=== PATIENT | female | born 1950 | race Caucasian/White ===

== ENCOUNTER 2018-01-18 17:19 | Observation (INO) | payer BC ==
[2018-01-18] MEDS ORDERED: Levofloxacin 500MG/100ML D5W 500 MG/100 ML BAG IV STA (18:11)
[2018-01-18] MEDS ORDERED: Sodium Chloride 0.9% 1000 ML 1,000 ML IV STA (18:11)
[2018-01-18] MEDS ORDERED: PROVENTIL 2.5 MG/3 ML NEB IH ONE (18:11)
[2018-01-18] MEDS ORDERED: solu-MEDROL 125 MG IV ONE (18:11)
--- NOTE | 2018-01-18 18:18 | ERPHSYRPT ---
- History of Present Illness Time Seen by Provider: 01/18/18 17:45 Source: patient Exam Limitations: clinical condition Patient Subjective Stated Complaint: Cough and SOB x2 weeks, chest tightness Triage Nursing Assessment: Pt presents to the ED with complaints of SOB and cough x2 weeks, worse with exertion. States saw PCP for complaint, no improvement with antibiotics. Pt is A&O x4, no distress noted. Physician History: PATIENT COMPLAINS OF COUGH, DIFFICULTY BREATHING X 2 WEEKS, TREATED WITH ANTIBIOTIC KEFLEX 500MG 4 TIMES DAILY X 5 DAYS. HAS NO IMPROVEMENT. CONTINUES TO HAVE WHEEZES. DENIES FEVER AND CHILLS. Timing/Duration: week(s) Cough Quality/Degree: dry cough Possible Cause: no prior episodes Modifying Factors: Improves With: activity Associated Symptoms: shortness of breath, wheezing Allergies/Adverse Reactions: No Known Drug Allergies Allergy (Verified 06/20/12 22:22) Home Medications: Benzonatate 100 mg [Tessalon Perles 100 MG] 100 mg PO TIDPRN PRN 01/18/18 [History] cephALEXin [Cephalexin] 500 mg PO QID 01/18/18 [History] Hx Tetanus, Diphtheria Vaccination/Date Given: No Hx Influenza Vaccination/Date Given: No Hx Pneumococcal Vaccination/Date Given: No Immunizations Up to Date: No - Review of Systems Constitutional: No Fever, No Chills Eyes: No Symptoms Ears, Nose, & Throat: No Symptoms Respiratory: Cough, Dyspnea, Dyspnea on Exertion (CASTANEDA) Cardiac: No Symptoms, No Chest Pain, No Edema, No Syncope Abdominal/Gastrointestinal: No Symptoms, No Abdominal Pain, No Nausea, No Vomiting, No Diarrhea Genitourinary Symptoms: No Symptoms, Incontinence, No Dysuria Musculoskeletal: No Symptoms, No Back Pain, No Neck Pain Skin: No Rash Neurological: No Dizziness, No Focal Weakness, No Sensory Changes Psychological: No Symptoms Endocrine: No Symptoms All Other Systems: Reviewed and Negative - Past Medical History Pertinent Past Medical History: Yes Neurological History: No Pertinent History ENT History: No Pertinent History Cardiac History: Other Respiratory History: COPD Endocrine Medical History: No Pertinent History Musculoskeletal History: No Pertinent History GI Medical History: GERD History: No Pertinent History Psycho-Social History: No Pertinent History Female Reproductive Disorders: Endometriosis Other Medical History: MITRAL VALVE PROLAPSE - Past Surgical History Past Surgical History: Yes Neuro Surgical History: No Pertinent History Cardiac: No Pertinent History Respiratory: No Pertinent History Gastrointestinal: Cholecystectomy Genitourinary: No Pertinent History Musculoskeletal: Joint Replacement Other Surgical History: BACK. KNEE. SALPINGO-OOPHERCTOMY - Social History Smoking Status: Never smoker Exposure to second hand smoke: No Drug Use: none Patient Lives Alone: No - Female History Hx Now: No - Nursing Vital Signs Nursing Vital Signs: Initial Vital Signs Temperature 9.0 F 01/18/18 17:22 Pulse Rate 81 01/18/18 17:22 Respiratory Rate 20 01/18/18 17:22 Blood Pressure 140/66 01/18/18 17:22 O2 Sat by Pulse Oximetry 99 01/18/18 17:22 Pain Scale Pain Intensity 0 - Physical Exam General Appearance: no apparent distress, alert Eye Exam: PERRL/EOMI, eyes nml inspection Ears, Nose, Throat Exam: normal ENT inspection, TMs normal, pharynx normal, moist mucous membranes Neck Exam: normal inspection, non-tender, supple, full range of motion Respiratory Exam: diminished breath sounds (MODERATE WHEEZES, NO RHONCHI), No respiratory distress Cardiovascular Exam: regular rate/rhythm, normal heart sounds Gastrointestinal/Abdomen Exam: soft, No tenderness Back Exam: normal inspection, No CVA tenderness, No vertebral tenderness Extremity Exam: normal inspection, normal range of motion Neurologic Exam: alert, oriented x 3, cooperative, normal mood/affect, sensation nml, No motor deficits Skin Exam: normal color, warm, dry, No rash Lymphatic Exam: No adenopathy SpO2: 99 Oxygen Delivery: Room Air - Radiology Exams Chest X-ray Interpretation: Interpreted by me (PERIHILAR INFILTRATES) Ordered Tests: Active Orders 24 hr Category Date Time Status Code Status Order ROUTINE Care 01/18/18 20:16 Ordered IV Care Q6H Care 01/18/18 20:16 Ordered IV Insertion STAT Care 01/18/18 19:[address] in Observation ROUTINE Care 01/18/18 20:16 Ordered Boy Hose, Apply ROUTINE Care 01/18/18 20:16 Ordered Vital Signs Q4H Care 01/18/18 20:16 Ordered Weight,Daily 0600 Care 01/18/18 20:16 Ordered Regular Diet Diet 01/18/18 Breakfast Ordered CHEST 2 VIEWS (PA AND LAT) Stat Exams 01/18/18 18:12 Taken CBC W DIFF Stat Lab 01/18/18 18:30 Completed Manual Differential NC Stat Lab 01/18/18 18:30 Completed Oxygen NASAL CANNULA 2 lpm RT 01/18/18 20:16 Ordered Peak Expiratory Flow Rate ONCE RT 01/18/18 18:14 Completed Pulse Oximetry CONTINUOUS RT 01/18/18 20:18 Ordered Respiratory Nebulizer STAT RT 01/18/18 18:14 Completed Respiratory Therapy Consult ROUTINE RT 01/18/18 20:16 Ordered Transfer Order Routine Transfer 01/18/18 Ordered Medication Summary Discontinued Medications Generic Name Dose Route Start Last Admin Trade Name Vipinq PRN Reason Stop Dose Admin Albuterol Sulfate 10 mg 01/18/18 18:11 01/18/18 18:38 Proventil 2.5 Mg/3 Ml Neb IH 01/18/18 18:12 10 mg STAT ONE Administration Albuterol Sulfate Confirm 01/18/18 18:38 Proventil Solution 2.5 Mg/0.5 Ml Administered 01/18/18 18:39 Dose 10 mg IH .STK-MED ONE Levofloxacin/Dextrose 500 mg in 100 mls @ 100 mls/hr 01/18/18 18:11 01/18/18 18:42 Levofloxacin 500mg/100ml D5w IV 01/18/18 19:10 100 ml/hr STAT STA 100 mls/hr Administration Sodium Chloride 1,000 mls @ 500 mls/hr 01/18/18 18:11 01/18/18 18:42 Sodium Chloride 0.9% 1000 Ml IV 01/18/18 20:10 500 mls/hr .Q2H STA Administration Sodium Chloride Confirm 01/18/18 18:30 Sodium Chloride 0.9% 1000 Ml Administered 01/18/18 18:31 Dose 1,000 mls @ ud .ROUTE .STK-MED ONE Levofloxacin/Dextrose Confirm 01/18/18 18:33 Levofloxacin 500mg/100ml D5w Administered 01/18/18 18:34 Dose 500 mg in 100 mls @ ud IV .STK-MED ONE Methylprednisolone Sodium Succinate 125 mg 01/18/18 18:11 01/18/18 18:42 Solu-Medrol 125 Mg IV 01/18/18 18:12 125 mg STAT ONE Administration Methylprednisolone Sodium Succinate Confirm 01/18/18 18:30 Solu-Medrol 125 Mg Administered 01/18/18 18:31 Dose 125 mg .ROUTE .STK-MED ONE Sodium Chloride Confirm 01/18/18 18:37 Sodium Chloride 3 Ml Ud Nebules Administered 01/18/18 18:38 Dose 6 ml IH .STK-MED ONE Lab/Rad Data: Laboratory Result Diagrams 01/18/18 18:30 Laboratory Results 01/18/18 Range/Units 18:30 WBC 8.5 (4.0-10.5) K/mm3 RBC 3.95 L (4.1-5.4) M/mm3 Hgb 13.3 (12.0-16.0) gm/dl Hct 36.2 (35-47) % MCV 91.6 (78-100) fl MCH 33.6 H (26-32) pg MCHC 36.7 H (32-36) g/dl RDW 13.7 (11.5-14.0) % Plt Count 289 (150-450) K/mm3 MPV 10.4 H (6-9.5) fl Absolute Granulocytes 4.73 (1.4-6.9) - Progress Progress: improved, re-examined Progress Note: 01/18/18 19:11 ADMINISTERED CONTINUOUS NEB ALBUTEROL 10MG OVER 1 HOUR, IV NORMAL SALINE 500ML/ HR, LEVAQUIN 500MG IVPB, SOLUMEDROL 125MG IV Blood Culture(s) Obtained: No Antibiotics given: No Discussed with : He (DISCUSSED WITH DR ROMEO AT 1999 FOR OBSERVATION) - Departure Time of Disposition: 20:20 Departure Disposition: Observation Clinical Impression: ACUTE BRONCHITIS WITH BRONCHIOSPASM Condition: Stable Critical Care Time: No Referrals: MALINDA ROMEO MD [Primary Care Provider] -
[2018-01-18] MEDS ORDERED: solu-MEDROL 125 MG ONE (18:30)
[2018-01-18] MEDS ORDERED: Sodium Chloride 0.9% 1000 ML 1,000 ML ONE (18:30)
[2018-01-18] MEDS ORDERED: Levofloxacin 500MG/100ML D5W 500 MG/100 ML BAG IV ONE (18:33)
[2018-01-18] MEDS ORDERED: Sodium Chloride 3 ML UD NEBULES IH ONE (18:37)
[2018-01-18] MEDS ORDERED: PROVENTIL Solution 2.5 MG/0.5 ML IH ONE (18:38)
[2018-01-18 18:40] LABS: Granulocyte Absolute (ANC) 4.73 (1.4-6.9); Hematocrit 36.2 % (35-47); Hemoglobin 13.3 gm/dl (12.0-16.0); Mean Cell Volume 91.6 fl (78-100); Mean Corpuscular Hgb Concent. 36.7 g/dl (32-36); Mean Platelet Volume 10.4 fl (6-9.5); Platelet Count 289 K/mm3 (150-450); Red Blood Count 3.95 M/mm3 (4.1-5.4); Red Cell Distribution Width 13.7 % (11.5-14.0); White Blood Count 8.5 K/mm3 (4.0-10.5)
[2018-01-18 18:47] LABS: Mean Corpuscular Hemoglobin 33.6 pg (26-32)
[2018-01-18] MEDS ORDERED: Xopenex 1.25 MG/0.5 ML UD NEBULE IH PRN (20:19)
[2018-01-18] MEDS ORDERED: Tessalon Perles 100 MG PO PRN (20:20)
[2018-01-18] MEDS ORDERED: Sodium Chloride 0.9% 1000 ML 1,000 ML IV SCH (20:30)
[2018-01-18] MEDS: TYLENOL 325 MG PO PRN (21:04)
[2018-01-18] MEDS ORDERED: Protonix 40MG Tablet PO SCH ×2 (22:00)
[2018-01-18 22:56] LABS: Basophil 1 % (0.0-1.0); Lymphocytes 32 % (24-44); Monocyte 9 % (0.0-12.0); Neutrophils 58 % (36.0-66.0); Platelet Estimate NORMAL (NORMAL); Total Cells Counted 100
[2018-01-18] MEDS: DUONEB 0.5-3 MG/3 ml Neb IH SCH (23:07)
[2018-01-18] MEDS: solu-MEDROL 125 MG IV SCH (23:37)
[2018-01-19] MEDS: DUONEB 0.5-3 MG/3 ml Neb IH SCH ×2 (03:11→06:53)
[2018-01-19] MEDS: TYLENOL 325 MG PO PRN ×2 (03:32→11:38)
[2018-01-19] MEDS: solu-MEDROL 125 MG IV SCH ×2 (05:42→11:38)
--- NOTE | 2018-01-19 08:51 | XRAY ---
Indication: Cough and short of breath 2 weeks. Comparison: February 11, 2012. PA/lateral chest again demonstrates normal heart, lungs, and bony thorax with a few incidental calcified granulomas.
[2018-01-19 11:59] VITALS: BP 124/61; PULSE 95; O2SAT 97
--- NOTE | 2018-01-19 12:05 | PCM.SSS ---
History of Present Illness - Chief Complaint Chief Complaint: shortness of breath for 2-3 days History of Present Illness: is a 67 year old female.Pt presents to the ED with complaints of SOB and cough x2 weeks, worse with exertion. States saw PCP for complaint, no improvement with antibiotics - Review of Systems Constitutional: No Fever, No Chills Eyes: No Symptoms Ears, Nose, & Throat: No Symptoms Respiratory: Cough, Orthopnea, Short Of Breath Cardiac: No Chest Pain, No Edema, No Syncope Abdominal/Gastrointestinal: No Abdominal Pain, No Nausea, No Vomiting, No Diarrhea Genitourinary Symptoms: No Dysuria Musculoskeletal: No Back Pain, No Neck Pain Skin: No Rash Neurological: No Dizziness, No Focal Weakness, No Sensory Changes Psychological: No Symptoms Endocrine: No Symptoms Hematologic/Lymphatic: No Symptoms Immunological/Allergic: No Symptoms Medications & Allergies Home Medications: Home Medication List Benzonatate 100 mg [Tessalon Perles 100 MG] 100 mg PO TIDPRN PRN 01/18/18 [History Confirmed 01/18/18] cephALEXin [Cephalexin] 500 mg PO QID 01/18/18 [History Confirmed 01/18/18] Methylprednisolone Packet [Medrol Dosepack] 4 mg PO UD #30 packet [Rx] Allergies/Adverse Reactions: Allergies Allergy/AdvReac Type Severity Reaction Status Date / Time No Known Drug Allergies Allergy Verified 06/20/12 22:22 - Past Medical History Past Medical History: Yes Neurological History: No Pertinent History ENT History: No Pertinent History Cardiac History: Other Respiratory History: COPD Endocrine Medical History: No Pertinent History Musculoskelatal History: No Pertinent History GI Medical History: GERD History: No Pertinent History Pyscho-Social History: No Pertinent History Reproductive Disorders: Endometriosis Comment: MITRAL VALVE PROLAPSE - Female History Are you now?: No - Past Surgical History Past Surgical History: Yes Neuro Surgical History: No Pertinent History Cardiac History: No Pertinent History Respiratory Surgery: No Pertinent History GI Surgical History: Cholecystectomy Genitourinary Surgical Hx: No Pertinent History Musculskeletal Surgical Hx: Joint Replacement Female Surgical History: No Pertinent History Other Surgical History: BACK. KNEE. SALPINGO-OOPHERCTOMY - Social History Smoking Status: Never smoker Exposure to second hand smoke: No Alcohol: None Drug Use: none - Physical Exam Vital Signs: Vital Signs - 24 hr Temp Pulse Resp BP Pulse Ox 01/19/18 11:58 98 F 95 H 18 124/61 97 01/19/18 10:32 102 H 18 95 01/19/18 08:00 18 01/19/18 07:41 98.3 F 92 H 18 130/57 97 01/19/18 06:53 98 H 18 94 L 01/19/18 04:00 97.7 F 98 H 20 123/58 97 01/19/18 03:00 98 H 18 97 01/19/18 00:00 18 01/18/18 23:00 96 H 18 96 01/18/18 21:59 98.6 F 86 14 128/60 100 01/18/18 20:21 99 01/18/18 20:05 97 H 20 138/74 99 01/18/18 18:45 84 20 97 01/18/18 17:22 9.0 F 81 20 140/66 99 General Appearance: no apparent distress, alert Neurologic Exam: alert, oriented x 3, cooperative, normal mood/affect, nml cerebellar function, nml station & gait, sensation nml, No motor deficits Eye Exam: PERRL/EOMI, eyes nml inspection Ears, Nose, Throat Exam: normal ENT inspection, TMs normal, pharynx normal, moist mucous membranes Neck Exam: normal inspection, non-tender, supple, full range of motion Respiratory Exam: normal breath sounds, diminished breath sounds, crackles/rales , rhonchi, wheezing, No respiratory distress Cardiovascular Exam: regular rate/rhythm, normal heart sounds, normal peripheral pulses Gastrointestinal/Abdomen Exam: soft, normal bowel sounds, No tenderness, No mass Back Exam: normal inspection, normal range of motion, No CVA tenderness, No vertebral tenderness Extremity Exam: normal inspection, normal range of motion, pelvis stable Skin Exam: normal color, warm, dry, No rash Lymphatic Exam: No adenopathy Results - Other Procedures and Tests Respiratory Therapy 01/18/18 23:00 Respiratory Nebulizer Q4H Assessment/Plan (1) Bronchitis, acute, with bronchospasm Current Visit: Yes Status: Acute Onset Date: ~01/19/18 Code(s): J20.9 - ACUTE BRONCHITIS, UNSPECIFIED Hospital Summary - Hospital Course Hospital Course: Chief Complaint Diagnosis acute brochitis with bronchiospasm Allergies Allergy/AdvReac Type Severity Reaction Status Date / Time No Known Drug Allergies Allergy Verified 06/20/12 22:22 Vital Signs (Last 24 hours) Temp Pulse Resp BP Pulse Ox 01/19/18 11:58 98 F 95 H 18 124/61 97 01/19/18 10:32 102 H 18 95 01/19/18 08:00 18 01/19/18 07:41 98.3 F 92 H 18 130/57 97 01/19/18 06:53 98 H 18 94 L 01/19/18 04:00 97.7 F 98 H 20 123/58 97 01/19/18 03:00 98 H 18 97 01/19/18 00:00 18 01/18/18 23:00 96 H 18 96 01/18/18 21:59 98.6 F 86 14 128/60 100 01/18/18 20:21 99 01/18/18 20:05 97 H 20 138/74 99 01/18/18 18:45 84 20 97 01/18/18 17:22 9.0 F 81 20 140/66 99 Home Medications Medication Instructions Recorded Confirmed Last Taken Type Benzonatate 100 mg [Tessalon 100 mg PO TIDPRN PRN 01/18/18 01/18/18 Unknown History Perles 100 MG] cephALEXin [Cephalexin] 500 mg PO QID 01/18/18 01/18/18 Unknown History Current Medications Generic Name Dose Route Start Last Admin Trade Name Freq PRN Reason Stop Dose Admin Acetaminophen 650 mg 01/18/18 20:18 01/19/18 11:38 Tylenol 325 Mg PO 02/17/18 20:17 650 mg Q4H PRN PRN Administration PAIN AND/OR FEVER Albuterol/Ipratropium 3 ml 01/18/18 23:00 01/19/18 06:53 Duoneb 0.5-3 Mg/3 Ml Neb IH 02/17/18 22:59 3 ml Q4HRT JOHANNE Administration Benzonatate 100 mg 01/18/18 20:20 01/19/18 03:32 Tessalon Perles 100 Mg PO 02/17/18 20:19 100 mg TID PRN PRN Administration COUGH Sodium Chloride 1,000 mls @ 50 mls/hr 01/18/18 20:30 01/18/18 22:25 Sodium Chloride 0.9% 1000 Ml IV 02/17/18 20:29 50 mls/hr .Q20H JOHANNE Administration Levalbuterol HCl 1.25 mg 01/18/18 20:19 Xopenex 1.25 Mg/0.5 Ml Ud Nebule IH 02/17/18 20:18 Q2HPRN PRN DIFFICULTY BREATHING Methylprednisolone Sodium Succinate 80 mg 01/19/18 00:00 01/19/18 11:38 Solu-Medrol 125 Mg IV 02/18/18 00:00 80 mg Q6HT JOHANNE Administration Pantoprazole Sodium 40 mg 01/18/18 22:00 01/18/18 21:40 Protonix 40mg Tablet PO 02/17/18 21:59 40 mg QHS JOHANNE Administration Discontinued Medications Generic Name Dose Route Start Last Admin Trade Name Freq PRN Reason Stop Dose Admin Albuterol Sulfate 10 mg 01/18/18 18:11 01/18/18 18:38 Proventil 2.5 Mg/3 Ml Neb IH 01/18/18 18:12 10 mg STAT ONE Administration Albuterol Sulfate Confirm 01/18/18 18:38 Proventil Solution 2.5 Mg/0.5 Ml Administered 01/18/18 18:39 Dose 10 mg IH .STK-MED ONE Levofloxacin/Dextrose 500 mg in 100 mls @ 100 mls/hr 01/18/18 18:11 01/18/18 18:42 Levofloxacin 500mg/100ml D5w IV 01/18/18 19:10 100 ml/hr STAT STA 100 mls/hr Administration Sodium Chloride 1,000 mls @ 500 mls/hr 01/18/18 18:11 01/18/18 18:42 Sodium Chloride 0.9% 1000 Ml IV 01/18/18 20:10 500 mls/hr .Q2H STA Administration Sodium Chloride Confirm 01/18/18 18:30 Sodium Chloride 0.9% 1000 Ml Administered 01/18/18 18:31 Dose 1,000 mls @ ud .ROUTE .STK-MED ONE Levofloxacin/Dextrose Confirm 01/18/18 18:33 Levofloxacin 500mg/100ml D5w Administered 01/18/18 18:34 Dose 500 mg in 100 mls @ ud IV .STK-MED ONE Methylprednisolone Sodium Succinate 125 mg 01/18/18 18:11 01/18/18 18:42 Solu-Medrol 125 Mg IV 01/18/18 18:12 125 mg STAT ONE Administration Methylprednisolone Sodium Succinate Confirm 01/18/18 18:30 Solu-Medrol 125 Mg Administered 01/18/18 18:31 Dose 125 mg .ROUTE .STK-MED ONE Pantoprazole Sodium 40 mg 01/18/18 22:00 Protonix 40mg Tablet PO 02/17/18 21:59 DAILY JOHANNE Sodium Chloride Confirm 01/18/18 18:37 Sodium Chloride 3 Ml Ud Nebules Administered 01/18/18 18:38 Dose 6 ml IH .STK-MED ONE Intake & Output (Last 24 hours) 01/17/18 01/18/18 01/19/18 01/20/18 11:59 11:59 11:59 11:59 Intake Total 1892 Balance 1892 Weight 81 kg Laboratory Results (Last 24 hours) 01/18/18 18:30 WBC 8.5 RBC 3.95 L Hgb 13.3 Hct 36.2 MCV 91.6 MCH 33.6 H MCHC 36.7 H RDW 13.7 Plt Count 289 MPV 10.4 H Absolute Granulocytes 4.73 Segmented Neutrophils 58 Lymphocytes (Manual) 32 Monocytes (Manual) 9 Basophils (Manual) 1 Platelet Estimate NORMAL RBC Morphology NORMAL Orders (Last 24 hours) Category Date Time Status Code Status Order ROUTINE Care 01/18/18 20:16 Active IV Care Q6H Care 01/18/18 20:16 Completed IV Insertion STAT Care 01/18/18 19:[address] in Observation ROUTINE Care 01/18/18 20:16 Active Boy Jo, Apply ROUTINE Care 01/18/18 20:16 Active Vital Signs Q4H Care 01/18/18 20:16 Completed Weight,Daily 0600 Care 01/18/18 20:16 Active CHEST 2 VIEWS (PA AND LAT) Stat Exams 01/18/18 18:12 Completed CBC W DIFF Stat Lab 01/18/18 18:30 Completed Manual Differential NC Stat Lab 01/18/18 18:30 Completed Acetaminophen 325 mg [Tylenol 325 mg] Med 01/18/18 20:18 Active 650 mg PO Q4H PRN PRN Albuterol 2.5 mg/0.5 ml [PROVENTIL Solution 2.5 MG/0 Med 01/18/18 18:38 Discontinued .5 ML] 10 mg IH .STK-MED ONE Albuterol 2.5 mg/3 ml Neb [Proventil 2.5 mg/3 ml Neb Med 01/18/18 18:11 Discontinued ] 10 mg IH STAT ONE Albuterol/Ipratropium 3ml Neb* [DUONEB 0.5-3 MG/3 ml Med 01/18/18 23:00 Active Neb] 3 ml IH Q4HRT Benzonatate 100 mg [Tessalon Perles 100 MG] Med 01/18/18 20:20 Active 100 mg PO TID PRN PRN Levalbuterol HCl 1.25 MG/0.5M* [Xopenex 1.25 MG/0.5 ML Med 01/18/18 20:19 Active UD NEBULE] 1.25 mg IH Q2HPRN PRN Levofloxacin [Levofloxacin 500MG/100ML D5W] Med 01/18/18 18:11 Discontinued 500 mg in 100 ml IV STAT Levofloxacin [Levofloxacin 500MG/100ML D5W] Med 01/18/18 18:33 Discontinued 500 mg in 100 ml IV UD Methylprednis Sod Succ 125 mg* [solu-MEDROL 125 MG] Med 01/18/18 18:30 Discontinued 125 mg .ROUTE .STK-MED ONE Methylprednis Sod Succ 125 mg* [solu-MEDROL 125 MG] Med 01/18/18 18:11 Discontinued 125 mg IV STAT ONE Methylprednis Sod Succ 125 mg* [solu-MEDROL 125 MG] Med 01/19/18 00:00 Active 80 mg IV Q6HT NaCl 0.9% 1000 ml [Sodium Chloride 0.9% 1000 ML] 1,000 Med 01/18/18 18:30 Discontinued ml .ROUTE UD NaCl 0.9% 1000 ml [Sodium Chloride 0.9% 1000 ML] 1,000 Med 01/18/18 20:30 Active ml IV 50 mls/hr NaCl 0.9% 1000 ml [Sodium Chloride 0.9% 1000 ML] 1,000 Med 01/18/18 18:11 Discontinued ml IV 500 mls/hr NaCl 3Ml For Inhalation [Sodium Chloride 3 ML UD Med 01/18/18 18:37 Discontinued NEBULES] 6 ml IH .STK-MED ONE PANTOPRAZOLE 40 mg Tablet [Protonix 40MG Tablet] Med 01/18/18 22:00 Discontinued 40 mg PO DAILY PANTOPRAZOLE 40 mg Tablet [Protonix 40MG Tablet] Med 01/18/18 22:00 Active 40 mg PO QHS Oxygen NASAL CANNULA 2 lpm RT 01/18/18 20:16 Completed Peak Expiratory Flow Rate ONCE RT 01/18/18 18:14 Completed Pulse Oximetry CONTINUOUS RT 01/18/18 20:18 Completed Respiratory Nebulizer Q4H RT 01/18/18 23:00 Active Respiratory Nebulizer STAT RT 01/18/18 18:14 Completed Respiratory Therapy Consult ROUTINE RT 01/18/18 20:16 Completed - Vitals & Intake/Output Vital Signs: Vital Signs Temperature 98 F 01/19/18 11:58 Pulse Rate 95 H 01/19/18 11:58 Respiratory Rate 18 01/19/18 11:58 Blood Pressure 124/61 01/19/18 11:58 O2 Sat by Pulse Oximetry 97 01/19/18 11:58 Intake & Output: Intake & Output 01/17/18 01/18/18 01/19/18 01/20/18 11:59 11:59 11:59 11:59 Intake Total 1892 Balance 1892 Weight 81 kg - Lab Result Diagrams: 01/18/18 18:30 - Procedures and Test Procedures and Tests throughout Hospitalization: Therapy Orders & Screens 01/18/18 23:00 Respiratory Nebulizer Q4H Comment: Diagnosis: acute brochitis with bronchiospasm - Discharge Discharge Date: 01/19/18 Disposition: Home, Self-Care Condition: Stable Prescriptions: New Methylprednisolone Packet [Medrol Dosepack] 4 mg PO UD #30 packet Continue cephALEXin [Cephalexin] 500 mg PO QID Benzonatate 100 mg [Tessalon Perles 100 MG] 100 mg PO TIDPRN PRN PRN Reason: Cough Follow up with: MALINDA ROMEO MD [Primary Care Provider] - 1 Week
[2018-01-19] MEDS ORDERED: KEFLEX 500 MG PO SCH (13:00)
== END 2018-01-19 14:05 | disposition home or self-care (01) ==
LOC: ED 17:19 → MED SURG 20:43
PROVIDERS: ADMIT General Practice; ATTEND General Practice
DX: J20.9 Acute bronchitis, unspecified (principal); J44.9 Chronic obstructive pulmonary disease, unspecified; K21.9 Gastro-esophageal reflux disease without esophagitis; N80.9 Endometriosis, unspecified; I34.1 Nonrheumatic mitral (valve) prolapse
CPT/HCPCS: 36000; 36415; 71046; 85025; 94150; 94640; 94760; 96374; 99285; G0378; J1956; J2930; A9270-GY

== ENCOUNTER 2020-11-11 15:51 | Observation (INO) | payer OTHER ==
[2020-11-11] MEDS ORDERED: Sodium Chloride 0.9% 1000 ML 1,000 ML IV SCH (16:30)
[2020-11-11] MEDS ORDERED: Sodium Chloride 0.9% 1000 ML 1,000 ML ONE (16:48)
[2020-11-11 16:54] LABS: Absolute Neutrophil Ct (ANC) 5.02 (1.4-6.9); BASOPHIL % 0.4 % (0.0-0.4); Basophil (Absolute #) 0.03 (0-0.4); Eosinophil (Absolute #) 0.08 (0-0.5); Hematocrit 36.8 % (35-47); Hemoglobin 12.8 gm/dl (12.0-16.0); Lymphocyte (Absolute #) 1.99 (1.0-4.6); Lymphocytes % 25.4 % (24.0-44.0); Mean Cell Volume 92.9 fl (78-100); Mean Corpuscular Hemoglobin 32.3 pg (26-32); Mean Corpuscular Hgb Concent. 34.8 g/dl (32-36); Mean Platelet Volume 10.5 fl (7.5-11.0); Monocyte (Absolute #) 0.73 (0.0-1.3); Monocytes % 9.3 % (0.0-12.0); Neutrophil % 63.9 % (36.0-66.0); Platelet Count 325 K/mm3 (150-450); Red Blood Count 3.96 M/mm3 (4.1-5.4); Red Cell Distribution Width 14.7 % (11.5-14.0); White Blood Count 7.9 K/mm3 (4.0-10.5)
[2020-11-11 17:12] LABS: ALBUMIN 4.3 g/dL (3.5-5.0); ALKALINE PHOSPHATASE 130 U/L (38-126); ANION GAP 11.3 MEQ/L (5-15); BLOOD UREA NITROGEN 14 mg/dL (7-17); CHLORIDE 102 mmol/L (98-107); Calcium 9.4 mg/dL (8.4-10.2); Carbon Dioxide 28 mmol/L (22-30); Creatinine 1 0.65 mg/dL (0.52-1.04); EST GLOMERULAR FILTRATION RATE > 60.0 ML/MIN; Glucose 99 mg/dL (74-106); MAGNESIUM 2.2 mg/dL (1.6-2.3); Potassium 3.8 mmol/L (3.5-5.1); SGOT/AST 21 U/L (14-36); SGPT/ALT 27 U/L (0-35); SODIUM 138 mmol/L (137-145); Total Protein 7.7 g/dL (6.3-8.2)
[2020-11-11 17:22] LABS: INR 1.26 (0.8-3.0); PROTIME 14.3 SECONDS (9.95-12.35)
[2020-11-11 17:25] LABS: PTT 29.2 SECONDS (25.3-37.0)
[2020-11-11 17:42] LABS: Appearance CLEAR (CLEAR); Bilirubin NEGATIVE (NEGATIVE); Blood NEGATIVE Ery/ul (0-5); Glucose NEGATIVE (NEGATIVE); Ketones NEGATIVE (NEGATIVE); Leukocyte Esterase NEGATIVE (NEGATIVE); Mucus SLIGHT /HPF (NEGATIVE); Nitrite NEGATIVE (NEGATIVE); Protein,Urine Dip NEGATIVE (Negative); Specific Gravity 1.005 (1.005-1.025); Urobilinogen NEGATIVE mg/dL (0-1)
[2020-11-11 17:50] LABS: Bacteria NONE SEEN /HPF (NEGATIVE); RBC NONE SEEN /HPF (0-2)
--- NOTE | 2020-11-11 18:25 | ERPHSYRPT ---
- History of Present Illness Time Seen by Provider: 11/11/20 16:10 Source: patient Exam Limitations: no limitations Patient Subjective Stated Complaint: Pt has been having pain in her LLQ for the past week Triage Nursing Assessment: Pt was sent to the ER by Dr. Avalos, hypertensive, rates abdominal pain as 5/10, pain to the LLQ with palpatation, denies N&V, denies radiation, pulses normal, skin n/w/d, last BM was this AM Physician History: Patient is a 70-year-old female presents to our emergency department as a r eferral from her primary care doctor, Dr. Austin for evaluation of left lower quadrant pain. Pain started approximately 1 week ago. Pain has been constant. Patient states that pain does not radiate. Pain rated 5 out of 10 at this time. No associated nausea or vomiting. No diarrhea. Patient's last bowel movement was this morning. Bowel movement was normal color well formed. Patient sympt oms are moderate in intensity. Palpation reproduces pain. Pain improved with rest. Patient denies trauma. No fever. No rash. Patient denies a history of the same. She voices no other complaints concerns at this time. Of note Dr. Austin requested that we order a D-dimer on our patient. Timing/Duration: week(s) Severity: moderate Modifying Factors: Improves With: movement Associated Symptoms: No nausea, No vomiting, No shortness of breath, No heartburn, No diaphoresis, No cough, No chills, No chest pain, No fever, No headaches, No loss of appetite, No malaise, No syncope, No seizure, No weakness Allergies/Adverse Reactions: No Known Drug Allergies Allergy (Verified 11/11/20 16:14) Home Medications: Levothyroxine Sodium 150 Mcg [Synthroid 150 Mcg] 150 mcg PO DAILY 11/11/20 [History] Hx Tetanus, Diphtheria Vaccination/Date Given: No Hx Influenza Vaccination/Date Given: No Hx Pneumococcal Vaccination/Date Given: No Travel Risk - International Travel Have you traveled outside of the country in past 3 weeks: No - Coronavirus Screening Are you exhibiting any of the following symptoms?: No Close contact with a COVID-19 positive Pt in past 14-21 Days: No - Review of Systems Constitutional: No Symptoms, No Fever, No Chills Eyes: No Symptoms Ears, Nose, & Throat: No Symptoms Respiratory: No Symptoms, No Cough, No Dyspnea Cardiac: No Symptoms, No Chest Pain, No Edema, No Syncope Abdominal/Gastrointestinal: No Symptoms, No Abdominal Pain, No Nausea, No Vomiting, No Diarrhea Genitourinary Symptoms: No Symptoms, No Dysuria Musculoskeletal: No Symptoms, No Back Pain, No Neck Pain Skin: No Symptoms, No Rash Neurological: No Symptoms, No Dizziness, No Focal Weakness, No Sensory Changes Psychological: No Symptoms Endocrine: No Symptoms Hematologic/Lymphatic: No Symptoms Immunological/Allergic: No Symptoms All Other Systems: Reviewed and Negative - Past Medical History Pertinent Past Medical History: Yes Neurological History: No Pertinent History ENT History: No Pertinent History Cardiac History: No Pertinent History Respiratory History: Bronchitis Endocrine Medical History: Other Musculoskeletal History: Osteoarthritis, Other GI Medical History: GERD History: No Pertinent History Psycho-Social History: No Pertinent History Female Reproductive Disorders: Endometriosis Other Medical History: HX OF PLANTAR FASCITIS, 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 HX OF TOTAL THYROIDECTOMY 3 WEEKS AGO. - Past Surgical History Past Surgical History: Yes Neuro Surgical History: No Pertinent History Cardiac: No Pertinent History Respiratory: No Pertinent History Gastrointestinal: Cholecystectomy Genitourinary: No Pertinent History Musculoskeletal: Joint Replacement Female Surgical History: No Pertinent History Other Surgical History: BACK. KNEE. SALPINGO-OOPHERCTOMY - Social History Smoking Status: Never smoker Exposure to second hand smoke: No Drug Use: none Patient Lives Alone: No - Female History Hx Now: No - Nursing Vital Signs Nursing Vital Signs: Initial Vital Signs Temperature 98.1 F 11/11/20 16:01 Pulse Rate 101 H 11/11/20 16:01 Blood Pressure 165/86 11/11/20 16:01 O2 Sat by Pulse Oximetry 98 11/11/20 16:01 Pain Scale Pain Intensity 5 - Physical Exam General Appearance: no apparent distress, alert Eye Exam: PERRL/EOMI, eyes nml inspection Ears, Nose, Throat Exam: normal ENT inspection, TMs normal, pharynx normal, moist mucous membranes Neck Exam: normal inspection, non-tender, supple, full range of motion Respiratory Exam: normal breath sounds, lungs clear, No respiratory distress Cardiovascular Exam: regular rate/rhythm, normal heart sounds, normal peripheral pulses Gastrointestinal/Abdomen Exam: soft, normal bowel sounds, tenderness, guarding, other (Tenderness to palpation left lower quadrant.), No mass, No rebound Back Exam: normal inspection, normal range of motion, No CVA tenderness, No vertebral tenderness Extremity Exam: normal inspection, normal range of motion, pelvis stable Neurologic Exam: alert, oriented x 3, cooperative, normal mood/affect, nml cerebellar function, nml station & gait, sensation nml, No motor deficits Skin Exam: normal color, warm, dry, No rash Lymphatic Exam: No adenopathy SpO2 Interpretation: normal SpO2: 97 O2 Delivery: Room Air - Course Nursing assessment & vital signs reviewed: Yes EKG Interpreted by Me: RATE (77), Sinus Rhythm, NORMAL AXIS, NORMAL INTERVALS - CT Exams Chest CT Interpretation: Tele-radiologist Report (CT chest negative for PE. Old granulomatous disease. No new acute findings.) Abdomen/Pelvis CT Interpretation: Tele-radiologist Report (CT abdomen pelvis reveals new moderate sigmoid diverticulitis without complications. Remaining CT abdomen pelvis negative.) Ordered Tests: Active Orders 24 hr Category Date Time Status Leather Stretcher STAT Care 11/11/20 16:28 Active EKG-ER Only STAT Care 11/11/20 16:26 Active IV Insertion STAT Care 11/11/20 16:26 Active Pulse Oximetry (ED) STAT Care 11/11/20 16:26 Active ABDOMEN AND PELVIS W CONTRAST [CT] Stat Exams 11/11/20 17:40 Taken CHEST WITH CONTRAST [CT] Stat Exams 11/11/20 17:40 Taken CBC W DIFF Stat Lab 11/11/20 16:26 Completed CMP Stat Lab 11/11/20 16:26 Completed D-DIMER QUANTITATIVE Stat Lab 11/11/20 16:26 Completed MAGNESIUM Stat Lab 11/11/20 16:26 Completed PROTIME WITH INR Stat Lab 11/11/20 16:26 Completed PTT Stat Lab 11/11/20 16:26 Completed TROPONIN Q3H Lab 11/11/20 16:26 Completed TROPONIN Q3H Lab 11/11/20 19:30 Completed TROPONIN Q3H Lab 11/11/20 22:30 Ordered TROPONIN Q3H Lab 11/12/20 01:30 Ordered TROPONIN Q3H Lab 11/12/20 04:30 Ordered UA W/RFX UR CULTURE Stat Lab 11/11/20 17:22 Completed Transfer Order Routine Transfer 11/11/20 Ordered Medication Summary Generic Name Dose Route Start Last Admin Trade Name Freq PRN Reason Stop Dose Admin Sodium Chloride 1,000 mls @ 100 mls/hr 11/11/20 16:30 11/11/20 16:49 Sodium Chloride 0.9% 1000 Ml IV 12/11/20 16:29 100 mls/hr .Q10H JOHANNE Administration Piperacillin Sod/Tazobactam 100 mls @ 200 mls/hr 11/11/20 20:08 Sod 3.375 gm/ Sodium Chloride IV 11/11/20 20:37 STAT ONE Lab/Rad Data: Laboratory Result Diagrams 11/11/20 16:26 11/11/20 16:26 Laboratory Results 11/11/20 11/11/20 11/11/20 Range/Units 19:30 17:22 16:26 WBC (4.0-10.5) K/mm3 RBC (4.1-5.4) M/mm3 Hgb (12.0-16.0) gm/dl Hct (35-47) % MCV (78-100) fl MCH (26-32) pg MCHC (32-36) g/dl RDW (11.5-14.0) % Plt Count (150-450) K/mm3 MPV (7.5-11.0) fl Gran % (36.0-66.0) % Eos # (Auto) (0-0.5) Absolute Lymphs (auto) (1.0-4.6) Absolute Monos (auto) (0.0-1.3) Lymphocytes % (24.0-44.0) % Monocytes % (0.0-12.0) % Eosinophils % (0.00-5.0) % Basophils % (0.0-0.4) % Absolute Granulocytes (1.4-6.9) Basophils # (0-0.4) PT (9.95-12.35) SECONDS INR (0.8-3.0) APTT (25.3-37.0) SECONDS D-Dimer (215-500) ng/mL Sodium (137-145) mmol/L Potassium (3.5-5.1) mmol/L Chloride (98-107) mmol/L Carbon Dioxide (22-30) mmol/L Anion Gap (5-15) MEQ/L BUN (7-17) mg/dL Creatinine (0.52-1.04) mg/dL Estimated GFR ML/MIN Glucose (74-106) mg/dL Calcium (8.4-10.2) mg/dL Magnesium (1.6-2.3) mg/dL Total Bilirubin (0.2-1.3) mg/dL AST (14-36) U/L ALT (0-35) U/L Alkaline Phosphatase (38-126) U/L Troponin I < 0.012 < 0.012 (0.000-0.034) ng/mL Serum Total Protein (6.3-8.2) g/dL Albumin (3.5-5.0) g/dL Urine Color YELLOW (YELLOW) Urine Appearance CLEAR (CLEAR) Urine pH 6.0 (5-6) Ur Specific [place] 1.005 (1.005-1.025) Urine Protein NEGATIVE (Negative) Urine Ketones NEGATIVE (NEGATIVE) Urine Blood NEGATIVE (0-5) Slick/ul Urine Nitrite NEGATIVE (NEGATIVE) Urine Bilirubin NEGATIVE (NEGATIVE) Urine Urobilinogen NEGATIVE (0-1) mg/dL Ur Leukocyte Esterase NEGATIVE (NEGATIVE) Urine WBC (Auto) NONE (0-5) /HPF Urine RBC (Auto) NONE SEEN (0-2) /HPF U Epithel Cells (Auto) NONE (FEW) /HPF Urine Bacteria (Auto) NONE SEEN (NEGATIVE) /HPF Urine Mucus (Auto) SLIGHT (NEGATIVE) /HPF Urine Culture Reflexed NO (NO) Urine Glucose NEGATIVE (NEGATIVE) mg/dL 11/11/20 11/11/20 11/11/20 Range/Units 16:26 16:26 16:26 WBC 7.9 (4.0-10.5) K/mm3 RBC 3.96 L (4.1-5.4) M/mm3 Hgb 12.8 (12.0-16.0) gm/dl Hct 36.8 (35-47) % MCV 92.9 (78-100) fl MCH 32.3 H (26-32) pg MCHC 34.8 (32-36) g/dl RDW 14.7 H (11.5-14.0) % Plt Count 325 (150-450) K/mm3 MPV 10.5 (7.5-11.0) fl Gran % 63.9 (36.0-66.0) % Eos # (Auto) 0.08 (0-0.5) Absolute Lymphs (auto) 1.99 (1.0-4.6) Absolute Monos (auto) 0.73 (0.0-1.3) Lymphocytes % 25.4 (24.0-44.0) % Monocytes % 9.3 (0.0-12.0) % Eosinophils % 1.0 (0.00-5.0) % Basophils % 0.4 (0.0-0.4) % Absolute Granulocytes 5.02 (1.4-6.9) Basophils # 0.03 (0-0.4) PT 14.3 H (9.95-12.35) SECONDS INR 1.26 (0.8-3.0) APTT 29.2 (25.3-37.0) SECONDS D-Dimer 835 H* (215-500) ng/mL Sodium 138 (137-145) mmol/L Potassium 3.8 (3.5-5.1) mmol/L Chloride 102 (98-107) mmol/L Carbon Dioxide 28 (22-30) mmol/L Anion Gap 11.3 (5-15) MEQ/L BUN 14 (7-17) mg/dL Creatinine 0.65 (0.52-1.04) mg/dL Estimated GFR > 60.0 ML/MIN Glucose 99 (74-106) mg/dL Calcium 9.4 (8.4-10.2) mg/dL Magnesium 2.2 (1.6-2.3) mg/dL Total Bilirubin 1.30 (0.2-1.3) mg/dL AST 21 (14-36) U/L ALT 27 (0-35) U/L Alkaline Phosphatase 130 H (38-126) U/L Troponin I (0.000-0.034) ng/mL Serum Total Protein 7.7 (6.3-8.2) g/dL Albumin 4.3 (3.5-5.0) g/dL Urine Color (YELLOW) Urine Appearance (CLEAR) Urine pH (5-6) Ur Specific [place] (1.005-1.025) Urine Protein (Negative) Urine Ketones (NEGATIVE) Urine Blood (0-5) Slick/ul Urine Nitrite (NEGATIVE) Urine Bilirubin (NEGATIVE) Urine Urobilinogen (0-1) mg/dL Ur Leukocyte Esterase (NEGATIVE) Urine WBC (Auto) (0-5) /HPF Urine RBC (Auto) (0-2) /HPF U Epithel Cells (Auto) (FEW) /HPF Urine Bacteria (Auto) (NEGATIVE) /HPF Urine Mucus (Auto) (NEGATIVE) /HPF Urine Culture Reflexed (NO) Urine Glucose (NEGATIVE) mg/dL - Progress Progress: improved Progress Note: 11/11/20 20:22 Patient reassessed. Pain improved. CT negative for PE. CT abdomen pelvis sig nificant for diverticulitis. Zosyn administered. Patient currently n.p.o. Case discussed with Dr. Austin who accepts admission to observation. Plan of care discussed with patient. She agrees to admission to [facility] for further evaluation and treatment. Discussed with Dr.: Enrique Counseled pt/family regarding: lab results, diagnosis, rad results - Departure Departure Disposition: Observation Clinical Impression: Diverticulitis Condition: Stable Critical Care Time: No Referrals: TIO AVALOS, [Primary Care Provider] -
[2020-11-11] MEDS ORDERED: Zosyn 3.375 GM Vial 3.375 GM in Sodium Chloride 100ML MINI-BAG PLUS 100 ML IV ONE (20:08)
[2020-11-11] MEDS ORDERED: Zosyn 3.375 GM Vial IV ONE ×2 (20:22→23:28)
[2020-11-11] MEDS ORDERED: Sodium Chloride 0.9% 100 ML IVPB 0 ML IV ONE (20:22)
[2020-11-11] MEDS ORDERED: MORPHINE SULFATE 2 MG INJ IV ONE (20:23)
[2020-11-11] MEDS ORDERED: Sodium Chloride 100ML MINI-BAG PLUS 0 ML IV ONE (20:24)
[2020-11-11] MEDS ORDERED: MORPHINE SULFATE 2 MG INJ ONE (20:32)
[2020-11-11] MEDS ORDERED: Sodium Chloride 0.9% 100 ML IVPB 100 ML IV ONE (23:30)
[2020-11-11] MEDS: MORPHINE SULFATE 2 MG INJ IV PRN (23:40)
[2020-11-11] MEDS: Sodium Chloride 0.9% 1000 ML 1,000 ML IV SCH (23:41)
[2020-11-12] MEDS: MORPHINE SULFATE 2 MG INJ IV PRN ×6 (03:27→23:10)
[2020-11-12] MEDS: Zosyn 3.375 GM Vial 3.375 GM in Sodium Chloride 100ML MINI-BAG PLUS 100 ML IV SCH ×4 (04:54→23:11)
[2020-11-12 05:21] LABS: BASOPHIL % 0.5 % (0.0-0.4); Basophil (Absolute #) 0.03 (0-0.4); Eosinophil % 1.6 % (0.00-5.0); Hematocrit 33.3 % (35-47); Hemoglobin 11.6 gm/dl (12.0-16.0); Lymphocyte (Absolute #) 1.61 (1.0-4.6); Lymphocytes % 25.5 % (24.0-44.0); Mean Cell Volume 93.3 fl (78-100); Mean Corpuscular Hemoglobin 32.5 pg (26-32); Mean Corpuscular Hgb Concent. 34.8 g/dl (32-36); Mean Platelet Volume 10.4 fl (7.5-11.0); Monocyte (Absolute #) 0.58 (0.0-1.3); Monocytes % 9.2 % (0.0-12.0); Neutrophil % 63.2 % (36.0-66.0); Platelet Count 299 K/mm3 (150-450); Red Blood Count 3.57 M/mm3 (4.1-5.4); Red Cell Distribution Width 14.7 % (11.5-14.0); White Blood Count 6.3 K/mm3 (4.0-10.5)
[2020-11-12 05:38] LABS: ALBUMIN 3.5 g/dL (3.5-5.0); ALKALINE PHOSPHATASE 136 U/L (38-126); ANION GAP 9.2 MEQ/L (5-15); BLOOD UREA NITROGEN 11 mg/dL (7-17); CHLORIDE 106 mmol/L (98-107); Calcium 8.7 mg/dL (8.4-10.2); Carbon Dioxide 27 mmol/L (22-30); Creatinine 1 0.63 mg/dL (0.52-1.04); EST GLOMERULAR FILTRATION RATE > 60.0 ML/MIN; Glucose 95 mg/dL (74-106); SGOT/AST 24 U/L (14-36); SGPT/ALT 38 U/L (0-35); SODIUM 138 mmol/L (137-145); Total Protein 6.6 g/dL (6.3-8.2)
--- NOTE | 2020-11-12 08:38 | XRAY ---
Indication: Left lower quadrant abdomen pain. Elevated d-dimer. Multiple contiguous axial images obtained through the chest using 110 cc Isovue 370 contrast and PE protocol. Comparison: Chest without contrast July 03, 2018. There is good opacification of the pulmonary arteries to include the lobar and segmental branches. No pulmonary embolus. Heart is not enlarged. Aorta is normal in course and caliber. Stable tiny mediastinal and right hilar calcified nodes. No pathologic mediastinal/hilar lymphadenopathy. Lungs again demonstrates a few bilateral calcified granulomas. Minimal bibasilar dependent atelectasis. No suspicious pulmonary mass, infiltrate, or effusion. Bony thorax intact with minimal degenerative changes throughout the spine. CT abdomen/pelvis reported separately. Impression: Negative pulmonary embolus. Again old granulomatous disease. Remaining CT chest with contrast exam is negative.
--- NOTE | 2020-11-12 08:42 | XRAY ---
Indication: Left lower quadrant abdomen pain. Multiple contiguous axial images obtained through the abdomen and pelvis using 110 cc Isovue 370 contrast. Comparison: August 19, 2005. CT chest reported separately. Noncontrasted stomach and bowel loops appear nonobstructed. New mild scattered descending and sigmoid diverticulosis. Proximal sigmoid colon demonstrates new moderate wall thickening and pericolonic stranding favoring acute diverticulitis. No free fluid/air. Incidental splenic calcified granulomas and stable cholecystectomy. Remaining liver, pancreas, spleen, adrenal glands, kidneys, ureters, bladder, and uterus appear unremarkable. There is now minimal aortic calcifications. No AAA or pathologic retroperitoneal lymphadenopathy. Osseous structures intact again with minimal/mild degenerative changes throughout the thoracolumbar spine. Impression: 1. New scattered colonic diverticulosis with new proximal sigmoid diverticulitis. No complications. 2. Remaining CT abdomen/pelvis with contrast exam is negative.
[2020-11-12] MEDS: Sodium Chloride 0.9% 1000 ML 1,000 ML IV SCH ×2 (09:27→18:40)
--- NOTE | 2020-11-12 12:29 | PCM.SSS ---
History of Present Illness - Chief Complaint Chief Complaint: Diverticulitis History of Present Illness: is a 70 year old female. Medications & Allergies Home Medications: Home Medication List Levothyroxine Sodium 150 Mcg [Synthroid 150 Mcg] 150 mcg PO DAILY 11/11/20 [History Confirmed 11/11/20] Allergies/Adverse Reactions: Allergies Allergy/AdvReac Type Severity Reaction Status Date / Time No Known Drug Allergies Allergy Verified 11/11/20 16:14 - Past Medical History Past Medical History: Yes Neurological History: No Pertinent History ENT History: No Pertinent History Cardiac History: No Pertinent History Respiratory History: Bronchitis Endocrine Medical History: Other Musculoskelatal History: Osteoarthritis, Other GI Medical History: GERD History: No Pertinent History Pyscho-Social History: No Pertinent History Reproductive Disorders: Endometriosis Comment: HX OF PLANTAR FASCITIS, 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 HX OF TOTAL THYROIDECTOMY 3 WEEKS AGO. - Female History Are you now?: No - Past Surgical History Past Surgical History: Yes Neuro Surgical History: No Pertinent History Cardiac History: No Pertinent History Respiratory Surgery: No Pertinent History GI Surgical History: Cholecystectomy Genitourinary Surgical Hx: No Pertinent History Musculskeletal Surgical Hx: Joint Replacement Female Surgical History: No Pertinent History Other Surgical History: BACK. KNEE. SALPINGO-OOPHERCTOMY - Social History Smoking Status: Never smoker Exposure to second hand smoke: No Alcohol: None Drug Use: none - Physical Exam Vital Signs: Vital Signs - 24 hr Temp Pulse Resp BP Pulse Ox 11/12/20 11:36 97.9 F 75 16 122/54 97 11/12/20 07:48 16 11/12/20 07:04 97.9 F 79 16 111/52 95 11/12/20 04:00 97.4 F 80 18 118/54 96 11/12/20 03:47 97.8 F 85 18 120/56 92 L 11/11/20 23:02 97.8 F 85 18 120/56 92 L 11/11/20 22:50 92 L 11/11/20 22:03 83 21 125/70 95 11/11/20 21:10 81 17 146/66 96 11/11/20 20:24 97 11/11/20 20:14 98 H 22 108/94 95 11/11/20 19:03 85 17 141/64 97 11/11/20 18:19 81 21 136/63 99 11/11/20 17:04 82 18 129/59 97 11/11/20 16:44 97 11/11/20 16:01 98.1 F 101 H 165/86 98 Results - Labs Lab/Micro Results: Lab Results-Last 24 Hours 11/11/20 11/11/20 11/11/20 Range/Units 16:26 16:26 16:26 WBC 7.9 (4.0-10.5) K/mm3 RBC 3.96 L (4.1-5.4) M/mm3 Hgb 12.8 (12.0-16.0) gm/dl Hct 36.8 (35-47) % MCV 92.9 (78-100) fl MCH 32.3 H (26-32) pg MCHC 34.8 (32-36) g/dl RDW 14.7 H (11.5-14.0) % Plt Count 325 (150-450) K/mm3 MPV 10.5 (7.5-11.0) fl Gran % 63.9 (36.0-66.0) % Eos # (Auto) 0.08 (0-0.5) Absolute Lymphs (auto) 1.99 (1.0-4.6) Absolute Monos (auto) 0.73 (0.0-1.3) Lymphocytes % 25.4 (24.0-44.0) % Monocytes % 9.3 (0.0-12.0) % Eosinophils % 1.0 (0.00-5.0) % Basophils % 0.4 (0.0-0.4) % Absolute Granulocytes 5.02 (1.4-6.9) Basophils # 0.03 (0-0.4) PT 14.3 H (9.95-12.35) SECONDS INR 1.26 (0.8-3.0) APTT 29.2 (25.3-37.0) SECONDS D-Dimer 835 H* (215-500) ng/mL Sodium 138 (137-145) mmol/L Potassium 3.8 (3.5-5.1) mmol/L Chloride 102 (98-107) mmol/L Carbon Dioxide 28 (22-30) mmol/L Anion Gap 11.3 (5-15) MEQ/L BUN 14 (7-17) mg/dL Creatinine 0.65 (0.52-1.04) mg/dL Estimated GFR > 60.0 ML/MIN Glucose 99 (74-106) mg/dL Calcium 9.4 (8.4-10.2) mg/dL Magnesium 2.2 (1.6-2.3) mg/dL Total Bilirubin 1.30 (0.2-1.3) mg/dL AST 21 (14-36) U/L ALT 27 (0-35) U/L Alkaline Phosphatase 130 H (38-126) U/L Troponin I (0.000-0.034) ng/mL Serum Total Protein 7.7 (6.3-8.2) g/dL Albumin 4.3 (3.5-5.0) g/dL Urine Color (YELLOW) Urine Appearance (CLEAR) Urine pH (5-6) Ur Specific [place] (1.005-1.025) Urine Protein (Negative) Urine Ketones (NEGATIVE) Urine Blood (0-5) Slick/ul Urine Nitrite (NEGATIVE) Urine Bilirubin (NEGATIVE) Urine Urobilinogen (0-1) mg/dL Ur Leukocyte Esterase (NEGATIVE) Urine WBC (Auto) (0-5) /HPF Urine RBC (Auto) (0-2) /HPF U Epithel Cells (Auto) (FEW) /HPF Urine Bacteria (Auto) (NEGATIVE) /HPF Urine Mucus (Auto) (NEGATIVE) /HPF Urine Culture Reflexed (NO) Urine Glucose (NEGATIVE) mg/dL 11/11/20 11/11/20 11/11/20 Range/Units 16:26 17:22 19:30 WBC (4.0-10.5) K/mm3 RBC (4.1-5.4) M/mm3 Hgb (12.0-16.0) gm/dl Hct (35-47) % MCV (78-100) fl MCH (26-32) pg MCHC (32-36) g/dl RDW (11.5-14.0) % Plt Count (150-450) K/mm3 MPV (7.5-11.0) fl Gran % (36.0-66.0) % Eos # (Auto) (0-0.5) Absolute Lymphs (auto) (1.0-4.6) Absolute Monos (auto) (0.0-1.3) Lymphocytes % (24.0-44.0) % Monocytes % (0.0-12.0) % Eosinophils % (0.00-5.0) % Basophils % (0.0-0.4) % Absolute Granulocytes (1.4-6.9) Basophils # (0-0.4) PT (9.95-12.35) SECONDS INR (0.8-3.0) APTT (25.3-37.0) SECONDS D-Dimer (215-500) ng/mL Sodium (137-145) mmol/L Potassium (3.5-5.1) mmol/L Chloride (98-107) mmol/L Carbon Dioxide (22-30) mmol/L Anion Gap (5-15) MEQ/L BUN (7-17) mg/dL Creatinine (0.52-1.04) mg/dL Estimated GFR ML/MIN Glucose (74-106) mg/dL Calcium (8.4-10.2) mg/dL Magnesium (1.6-2.3) mg/dL Total Bilirubin (0.2-1.3) mg/dL AST (14-36) U/L ALT (0-35) U/L Alkaline Phosphatase (38-126) U/L Troponin I < 0.012 < 0.012 (0.000-0.034) ng/mL Serum Total Protein (6.3-8.2) g/dL Albumin (3.5-5.0) g/dL Urine Color YELLOW (YELLOW) Urine Appearance CLEAR (CLEAR) Urine pH 6.0 (5-6) Ur Specific [place] 1.005 (1.005-1.025) Urine Protein NEGATIVE (Negative) Urine Ketones NEGATIVE (NEGATIVE) Urine Blood NEGATIVE (0-5) Slick/ul Urine Nitrite NEGATIVE (NEGATIVE) Urine Bilirubin NEGATIVE (NEGATIVE) Urine Urobilinogen NEGATIVE (0-1) mg/dL Ur Leukocyte Esterase NEGATIVE (NEGATIVE) Urine WBC (Auto) NONE (0-5) /HPF Urine RBC (Auto) NONE SEEN (0-2) /HPF U Epithel Cells (Auto) NONE (FEW) /HPF Urine Bacteria (Auto) NONE SEEN (NEGATIVE) /HPF Urine Mucus (Auto) SLIGHT (NEGATIVE) /HPF Urine Culture Reflexed NO (NO) Urine Glucose NEGATIVE (NEGATIVE) mg/dL 11/12/20 11/12/20 11/12/20 Range/Units 04:47 04:47 04:47 WBC 6.3 (4.0-10.5) K/mm3 RBC 3.57 L (4.1-5.4) M/mm3 Hgb 11.6 L (12.0-16.0) gm/dl Hct 33.3 L (35-47) % MCV 93.3 (78-100) fl MCH 32.5 H (26-32) pg MCHC 34.8 (32-36) g/dl RDW 14.7 H (11.5-14.0) % Plt Count 299 (150-450) K/mm3 MPV 10.4 (7.5-11.0) fl Gran % 63.2 (36.0-66.0) % Eos # (Auto) 0.10 (0-0.5) Absolute Lymphs (auto) 1.61 (1.0-4.6) Absolute Monos (auto) 0.58 (0.0-1.3) Lymphocytes % 25.5 (24.0-44.0) % Monocytes % 9.2 (0.0-12.0) % Eosinophils % 1.6 (0.00-5.0) % Basophils % 0.5 (0.0-0.4) % Absolute Granulocytes 4.00 (1.4-6.9) Basophils # 0.03 (0-0.4) PT (9.95-12.35) SECONDS INR (0.8-3.0) APTT (25.3-37.0) SECONDS D-Dimer (215-500) ng/mL Sodium 138 (137-145) mmol/L Potassium 4.0 (3.5-5.1) mmol/L Chloride 106 (98-107) mmol/L Carbon Dioxide 27 (22-30) mmol/L Anion Gap 9.2 (5-15) MEQ/L BUN 11 (7-17) mg/dL Creatinine 0.63 (0.52-1.04) mg/dL Estimated GFR > 60.0 ML/MIN Glucose 95 (74-106) mg/dL Calcium 8.7 (8.4-10.2) mg/dL Magnesium (1.6-2.3) mg/dL Total Bilirubin 1.20 (0.2-1.3) mg/dL AST 24 (14-36) U/L ALT 38 H (0-35) U/L Alkaline Phosphatase 136 H (38-126) U/L Troponin I < 0.012 (0.000-0.034) ng/mL Serum Total Protein 6.6 (6.3-8.2) g/dL Albumin 3.5 (3.5-5.0) g/dL Urine Color (YELLOW) Urine Appearance (CLEAR) Urine pH (5-6) Ur Specific [place] (1.005-1.025) Urine Protein (Negative) Urine Ketones (NEGATIVE) Urine Blood (0-5) Slick/ul Urine Nitrite (NEGATIVE) Urine Bilirubin (NEGATIVE) Urine Urobilinogen (0-1) mg/dL Ur Leukocyte Esterase (NEGATIVE) Urine WBC (Auto) (0-5) /HPF Urine RBC (Auto) (0-2) /HPF U Epithel Cells (Auto) (FEW) /HPF Urine Bacteria (Auto) (NEGATIVE) /HPF Urine Mucus (Auto) (NEGATIVE) /HPF Urine Culture Reflexed (NO) Urine Glucose (NEGATIVE) mg/dL - Radiology Impressions Radiology Exams & Impressions: Radiology Procedures Category Date Time Status ABDOMEN AND PELVIS W CONTRAST [CT] Stat Exams 11/11/20 17:40 Completed CHEST WITH CONTRAST [CT] Stat Exams 11/11/20 17:40 Completed Hospital Summary - Vitals & Intake/Output Vital Signs: Vital Signs Temperature 97.9 F 11/12/20 11:36 Pulse Rate 75 11/12/20 11:36 Respiratory Rate 16 11/12/20 11:36 Blood Pressure 122/54 11/12/20 11:36 O2 Sat by Pulse Oximetry 97 11/12/20 11:36 Intake & Output: Intake & Output 11/10/20 11/11/20 11/12/20 11/13/20 11:59 11:59 11:59 11:59 Intake Total 536 Balance 536 Weight 77.7 kg - Lab Result Diagrams: 11/12/20 04:47 11/12/20 04:47 Lab Results-Last 24 Hrs: Lab Results-Last 24 Hours 11/11/20 11/11/20 11/11/20 Range/Units 16:26 16:26 16:26 WBC 7.9 (4.0-10.5) K/mm3 RBC 3.96 L (4.1-5.4) M/mm3 Hgb 12.8 (12.0-16.0) gm/dl Hct 36.8 (35-47) % MCV 92.9 (78-100) fl MCH 32.3 H (26-32) pg MCHC 34.8 (32-36) g/dl RDW 14.7 H (11.5-14.0) % Plt Count 325 (150-450) K/mm3 MPV 10.5 (7.5-11.0) fl Gran % 63.9 (36.0-66.0) % Eos # (Auto) 0.08 (0-0.5) Absolute Lymphs (auto) 1.99 (1.0-4.6) Absolute Monos (auto) 0.73 (0.0-1.3) Lymphocytes % 25.4 (24.0-44.0) % Monocytes % 9.3 (0.0-12.0) % Eosinophils % 1.0 (0.00-5.0) % Basophils % 0.4 (0.0-0.4) % Absolute Granulocytes 5.02 (1.4-6.9) Basophils # 0.03 (0-0.4) PT 14.3 H (9.95-12.35) SECONDS INR 1.26 (0.8-3.0) APTT 29.2 (25.3-37.0) SECONDS D-Dimer 835 H* (215-500) ng/mL Sodium 138 (137-145) mmol/L Potassium 3.8 (3.5-5.1) mmol/L Chloride 102 (98-107) mmol/L Carbon Dioxide 28 (22-30) mmol/L Anion Gap 11.3 (5-15) MEQ/L BUN 14 (7-17) mg/dL Creatinine 0.65 (0.52-1.04) mg/dL Estimated GFR > 60.0 ML/MIN Glucose 99 (74-106) mg/dL Calcium 9.4 (8.4-10.2) mg/dL Magnesium 2.2 (1.6-2.3) mg/dL Total Bilirubin 1.30 (0.2-1.3) mg/dL AST 21 (14-36) U/L ALT 27 (0-35) U/L Alkaline Phosphatase 130 H (38-126) U/L Troponin I (0.000-0.034) ng/mL Serum Total Protein 7.7 (6.3-8.2) g/dL Albumin 4.3 (3.5-5.0) g/dL Urine Color (YELLOW) Urine Appearance (CLEAR) Urine pH (5-6) Ur Specific [place] (1.005-1.025) Urine Protein (Negative) Urine Ketones (NEGATIVE) Urine Blood (0-5) Slick/ul Urine Nitrite (NEGATIVE) Urine Bilirubin (NEGATIVE) Urine Urobilinogen (0-1) mg/dL Ur Leukocyte Esterase (NEGATIVE) Urine WBC (Auto) (0-5) /HPF Urine RBC (Auto) (0-2) /HPF U Epithel Cells (Auto) (FEW) /HPF Urine Bacteria (Auto) (NEGATIVE) /HPF Urine Mucus (Auto) (NEGATIVE) /HPF Urine Culture Reflexed (NO) Urine Glucose (NEGATIVE) mg/dL 11/11/20 11/11/20 11/11/20 Range/Units 16:26 17:22 19:30 WBC (4.0-10.5) K/mm3 RBC (4.1-5.4) M/mm3 Hgb (12.0-16.0) gm/dl Hct (35-47) % MCV (78-100) fl MCH (26-32) pg MCHC (32-36) g/dl RDW (11.5-14.0) % Plt Count (150-450) K/mm3 MPV (7.5-11.0) fl Gran % (36.0-66.0) % Eos # (Auto) (0-0.5) Absolute Lymphs (auto) (1.0-4.6) Absolute Monos (auto) (0.0-1.3) Lymphocytes % (24.0-44.0) % Monocytes % (0.0-12.0) % Eosinophils % (0.00-5.0) % Basophils % (0.0-0.4) % Absolute Granulocytes (1.4-6.9) Basophils # (0-0.4) PT (9.95-12.35) SECONDS INR (0.8-3.0) APTT (25.3-37.0) SECONDS D-Dimer (215-500) ng/mL Sodium (137-145) mmol/L Potassium (3.5-5.1) mmol/L Chloride (98-107) mmol/L Carbon Dioxide (22-30) mmol/L Anion Gap (5-15) MEQ/L BUN (7-17) mg/dL Creatinine (0.52-1.04) mg/dL Estimated GFR ML/MIN Glucose (74-106) mg/dL Calcium (8.4-10.2) mg/dL Magnesium (1.6-2.3) mg/dL Total Bilirubin (0.2-1.3) mg/dL AST (14-36) U/L ALT (0-35) U/L Alkaline Phosphatase (38-126) U/L Troponin I < 0.012 < 0.012 (0.000-0.034) ng/mL Serum Total Protein (6.3-8.2) g/dL Albumin (3.5-5.0) g/dL Urine Color YELLOW (YELLOW) Urine Appearance CLEAR (CLEAR) Urine pH 6.0 (5-6) Ur Specific [place] 1.005 (1.005-1.025) Urine Protein NEGATIVE (Negative) Urine Ketones NEGATIVE (NEGATIVE) Urine Blood NEGATIVE (0-5) Slick/ul Urine Nitrite NEGATIVE (NEGATIVE) Urine Bilirubin NEGATIVE (NEGATIVE) Urine Urobilinogen NEGATIVE (0-1) mg/dL Ur Leukocyte Esterase NEGATIVE (NEGATIVE) Urine WBC (Auto) NONE (0-5) /HPF Urine RBC (Auto) NONE SEEN (0-2) /HPF U Epithel Cells (Auto) NONE (FEW) /HPF Urine Bacteria (Auto) NONE SEEN (NEGATIVE) /HPF Urine Mucus (Auto) SLIGHT (NEGATIVE) /HPF Urine Culture Reflexed NO (NO) Urine Glucose NEGATIVE (NEGATIVE) mg/dL 11/12/20 11/12/20 11/12/20 Range/Units 04:47 04:47 04:47 WBC 6.3 (4.0-10.5) K/mm3 RBC 3.57 L (4.1-5.4) M/mm3 Hgb 11.6 L (12.0-16.0) gm/dl Hct 33.3 L (35-47) % MCV 93.3 (78-100) fl MCH 32.5 H (26-32) pg MCHC 34.8 (32-36) g/dl RDW 14.7 H (11.5-14.0) % Plt Count 299 (150-450) K/mm3 MPV 10.4 (7.5-11.0) fl Gran % 63.2 (36.0-66.0) % Eos # (Auto) 0.10 (0-0.5) Absolute Lymphs (auto) 1.61 (1.0-4.6) Absolute Monos (auto) 0.58 (0.0-1.3) Lymphocytes % 25.5 (24.0-44.0) % Monocytes % 9.2 (0.0-12.0) % Eosinophils % 1.6 (0.00-5.0) % Basophils % 0.5 (0.0-0.4) % Absolute Granulocytes 4.00 (1.4-6.9) Basophils # 0.03 (0-0.4) PT (9.95-12.35) SECONDS INR (0.8-3.0) APTT (25.3-37.0) SECONDS D-Dimer (215-500) ng/mL Sodium 138 (137-145) mmol/L Potassium 4.0 (3.5-5.1) mmol/L Chloride 106 (98-107) mmol/L Carbon Dioxide 27 (22-30) mmol/L Anion Gap 9.2 (5-15) MEQ/L BUN 11 (7-17) mg/dL Creatinine 0.63 (0.52-1.04) mg/dL Estimated GFR > 60.0 ML/MIN Glucose 95 (74-106) mg/dL Calcium 8.7 (8.4-10.2) mg/dL Magnesium (1.6-2.3) mg/dL Total Bilirubin 1.20 (0.2-1.3) mg/dL AST 24 (14-36) U/L ALT 38 H (0-35) U/L Alkaline Phosphatase 136 H (38-126) U/L Troponin I < 0.012 (0.000-0.034) ng/mL Serum Total Protein 6.6 (6.3-8.2) g/dL Albumin 3.5 (3.5-5.0) g/dL Urine Color (YELLOW) Urine Appearance (CLEAR) Urine pH (5-6) Ur Specific [place] (1.005-1.025) Urine Protein (Negative) Urine Ketones (NEGATIVE) Urine Blood (0-5) Slick/ul Urine Nitrite (NEGATIVE) Urine Bilirubin (NEGATIVE) Urine Urobilinogen (0-1) mg/dL Ur Leukocyte Esterase (NEGATIVE) Urine WBC (Auto) (0-5) /HPF Urine RBC (Auto) (0-2) /HPF U Epithel Cells (Auto) (FEW) /HPF Urine Bacteria (Auto) (NEGATIVE) /HPF Urine Mucus (Auto) (NEGATIVE) /HPF Urine Culture Reflexed (NO) Urine Glucose (NEGATIVE) mg/dL - Radiology Exams Ordered Rad Exams-Entire Visit: Radiology Procedures Category Date Time Status ABDOMEN AND PELVIS W CONTRAST [CT] Stat Exams 11/11/20 17:40 Completed CHEST WITH CONTRAST [CT] Stat Exams 11/11/20 17:40 Completed - Discharge Disposition: Home, Self-Care Condition: Stable Prescriptions: No Action Levothyroxine Sodium 150 Mcg [Synthroid 150 Mcg] 150 mcg PO DAILY Follow up with: TIO SAMRT DO [Primary Care Provider] -
--- NOTE | 2020-11-12 13:17 | PCM.HP ---
History of Present Illness - Chief Complaint Chief Complaint: Diverticulitis History of Present Illness: is a 70 year old female.Patient came in for a routine Pap yesterday and was having severe LLQ pain and not able to tolerate exam so I sent her to ER. CT abdomen/pelvis showed moderate diverticulitis proximal sigmoid. She has had pain for the past week but denied fever,no blood in stool. She had eaten alot of popcorn over the past week when snowed in. She had a screening colonoscopy years ago ,she believes at [facility]. Medications & Allergies Home Medications: Home Medication List Levothyroxine Sodium 150 Mcg [Synthroid 150 Mcg] 150 mcg PO DAILY 11/11/20 [History Confirmed 11/11/20] Allergies/Adverse Reactions: Allergies Allergy/AdvReac Type Severity Reaction Status Date / Time No Known Drug Allergies Allergy Verified 11/11/20 16:14 - Past Medical History Past Medical History: Yes Neurological History: No Pertinent History ENT History: No Pertinent History Cardiac History: No Pertinent History Respiratory History: Bronchitis Endocrine Medical History: Other Musculoskelatal History: Osteoarthritis, Other GI Medical History: GERD History: No Pertinent History Pyscho-Social History: No Pertinent History Reproductive Disorders: Endometriosis Comment: HX OF PLANTAR FASCITIS, 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 HX OF TOTAL THYROIDECTOMY 3 WEEKS AGO. - Female History Are you now?: No - Past Surgical History Past Surgical History: Yes Neuro Surgical History: No Pertinent History Cardiac History: No Pertinent History Respiratory Surgery: No Pertinent History GI Surgical History: Cholecystectomy Genitourinary Surgical Hx: No Pertinent History Musculskeletal Surgical Hx: Joint Replacement Female Surgical History: No Pertinent History Other Surgical History: BACK. KNEE. SALPINGO-OOPHERCTOMY - Social History Smoking Status: Never smoker Exposure to second hand smoke: No Alcohol: None Drug Use: none - Physical Exam Vital Signs: Vital Signs - 24 hr Temp Pulse Resp BP Pulse Ox 11/12/20 12:00 16 11/12/20 11:36 97.9 F 75 16 122/54 97 11/12/20 07:48 16 11/12/20 07:04 97.9 F 79 16 111/52 95 11/12/20 04:00 97.4 F 80 18 118/54 96 11/12/20 03:47 97.8 F 85 18 120/56 92 L 11/11/20 23:02 97.8 F 85 18 120/56 92 L 11/11/20 22:50 92 L 11/11/20 22:03 83 21 125/70 95 11/11/20 21:10 81 17 146/66 96 11/11/20 20:24 97 11/11/20 20:14 98 H 22 108/94 95 11/11/20 19:03 85 17 141/64 97 11/11/20 18:19 81 21 136/63 99 11/11/20 17:04 82 18 129/59 97 11/11/20 16:44 97 11/11/20 16:01 98.1 F 101 H 165/86 98 Results - Labs Lab/Micro Results: Lab Results-Last 24 Hours 11/11/20 11/11/20 11/11/20 Range/Units 16:26 16:26 16:26 WBC 7.9 (4.0-10.5) K/mm3 RBC 3.96 L (4.1-5.4) M/mm3 Hgb 12.8 (12.0-16.0) gm/dl Hct 36.8 (35-47) % MCV 92.9 (78-100) fl MCH 32.3 H (26-32) pg MCHC 34.8 (32-36) g/dl RDW 14.7 H (11.5-14.0) % Plt Count 325 (150-450) K/mm3 MPV 10.5 (7.5-11.0) fl Gran % 63.9 (36.0-66.0) % Eos # (Auto) 0.08 (0-0.5) Absolute Lymphs (auto) 1.99 (1.0-4.6) Absolute Monos (auto) 0.73 (0.0-1.3) Lymphocytes % 25.4 (24.0-44.0) % Monocytes % 9.3 (0.0-12.0) % Eosinophils % 1.0 (0.00-5.0) % Basophils % 0.4 (0.0-0.4) % Absolute Granulocytes 5.02 (1.4-6.9) Basophils # 0.03 (0-0.4) PT 14.3 H (9.95-12.35) SECONDS INR 1.26 (0.8-3.0) APTT 29.2 (25.3-37.0) SECONDS D-Dimer 835 H* (215-500) ng/mL Sodium 138 (137-145) mmol/L Potassium 3.8 (3.5-5.1) mmol/L Chloride 102 (98-107) mmol/L Carbon Dioxide 28 (22-30) mmol/L Anion Gap 11.3 (5-15) MEQ/L BUN 14 (7-17) mg/dL Creatinine 0.65 (0.52-1.04) mg/dL Estimated GFR > 60.0 ML/MIN Glucose 99 (74-106) mg/dL Calcium 9.4 (8.4-10.2) mg/dL Magnesium 2.2 (1.6-2.3) mg/dL Total Bilirubin 1.30 (0.2-1.3) mg/dL AST 21 (14-36) U/L ALT 27 (0-35) U/L Alkaline Phosphatase 130 H (38-126) U/L Troponin I (0.000-0.034) ng/mL Serum Total Protein 7.7 (6.3-8.2) g/dL Albumin 4.3 (3.5-5.0) g/dL Urine Color (YELLOW) Urine Appearance (CLEAR) Urine pH (5-6) Ur Specific [place] (1.005-1.025) Urine Protein (Negative) Urine Ketones (NEGATIVE) Urine Blood (0-5) Slick/ul Urine Nitrite (NEGATIVE) Urine Bilirubin (NEGATIVE) Urine Urobilinogen (0-1) mg/dL Ur Leukocyte Esterase (NEGATIVE) Urine WBC (Auto) (0-5) /HPF Urine RBC (Auto) (0-2) /HPF U Epithel Cells (Auto) (FEW) /HPF Urine Bacteria (Auto) (NEGATIVE) /HPF Urine Mucus (Auto) (NEGATIVE) /HPF Urine Culture Reflexed (NO) Urine Glucose (NEGATIVE) mg/dL 11/11/20 11/11/20 11/11/20 Range/Units 16:26 17:22 19:30 WBC (4.0-10.5) K/mm3 RBC (4.1-5.4) M/mm3 Hgb (12.0-16.0) gm/dl Hct (35-47) % MCV (78-100) fl MCH (26-32) pg MCHC (32-36) g/dl RDW (11.5-14.0) % Plt Count (150-450) K/mm3 MPV (7.5-11.0) fl Gran % (36.0-66.0) % Eos # (Auto) (0-0.5) Absolute Lymphs (auto) (1.0-4.6) Absolute Monos (auto) (0.0-1.3) Lymphocytes % (24.0-44.0) % Monocytes % (0.0-12.0) % Eosinophils % (0.00-5.0) % Basophils % (0.0-0.4) % Absolute Granulocytes (1.4-6.9) Basophils # (0-0.4) PT (9.95-12.35) SECONDS INR (0.8-3.0) APTT (25.3-37.0) SECONDS D-Dimer (215-500) ng/mL Sodium (137-145) mmol/L Potassium (3.5-5.1) mmol/L Chloride (98-107) mmol/L Carbon Dioxide (22-30) mmol/L Anion Gap (5-15) MEQ/L BUN (7-17) mg/dL Creatinine (0.52-1.04) mg/dL Estimated GFR ML/MIN Glucose (74-106) mg/dL Calcium (8.4-10.2) mg/dL Magnesium (1.6-2.3) mg/dL Total Bilirubin (0.2-1.3) mg/dL AST (14-36) U/L ALT (0-35) U/L Alkaline Phosphatase (38-126) U/L Troponin I < 0.012 < 0.012 (0.000-0.034) ng/mL Serum Total Protein (6.3-8.2) g/dL Albumin (3.5-5.0) g/dL Urine Color YELLOW (YELLOW) Urine Appearance CLEAR (CLEAR) Urine pH 6.0 (5-6) Ur Specific [place] 1.005 (1.005-1.025) Urine Protein NEGATIVE (Negative) Urine Ketones NEGATIVE (NEGATIVE) Urine Blood NEGATIVE (0-5) Slick/ul Urine Nitrite NEGATIVE (NEGATIVE) Urine Bilirubin NEGATIVE (NEGATIVE) Urine Urobilinogen NEGATIVE (0-1) mg/dL Ur Leukocyte Esterase NEGATIVE (NEGATIVE) Urine WBC (Auto) NONE (0-5) /HPF Urine RBC (Auto) NONE SEEN (0-2) /HPF U Epithel Cells (Auto) NONE (FEW) /HPF Urine Bacteria (Auto) NONE SEEN (NEGATIVE) /HPF Urine Mucus (Auto) SLIGHT (NEGATIVE) /HPF Urine Culture Reflexed NO (NO) Urine Glucose NEGATIVE (NEGATIVE) mg/dL 11/12/20 11/12/20 11/12/20 Range/Units 04:47 04:47 04:47 WBC 6.3 (4.0-10.5) K/mm3 RBC 3.57 L (4.1-5.4) M/mm3 Hgb 11.6 L (12.0-16.0) gm/dl Hct 33.3 L (35-47) % MCV 93.3 (78-100) fl MCH 32.5 H (26-32) pg MCHC 34.8 (32-36) g/dl RDW 14.7 H (11.5-14.0) % Plt Count 299 (150-450) K/mm3 MPV 10.4 (7.5-11.0) fl Gran % 63.2 (36.0-66.0) % Eos # (Auto) 0.10 (0-0.5) Absolute Lymphs (auto) 1.61 (1.0-4.6) Absolute Monos (auto) 0.58 (0.0-1.3) Lymphocytes % 25.5 (24.0-44.0) % Monocytes % 9.2 (0.0-12.0) % Eosinophils % 1.6 (0.00-5.0) % Basophils % 0.5 (0.0-0.4) % Absolute Granulocytes 4.00 (1.4-6.9) Basophils # 0.03 (0-0.4) PT (9.95-12.35) SECONDS INR (0.8-3.0) APTT (25.3-37.0) SECONDS D-Dimer (215-500) ng/mL Sodium 138 (137-145) mmol/L Potassium 4.0 (3.5-5.1) mmol/L Chloride 106 (98-107) mmol/L Carbon Dioxide 27 (22-30) mmol/L Anion Gap 9.2 (5-15) MEQ/L BUN 11 (7-17) mg/dL Creatinine 0.63 (0.52-1.04) mg/dL Estimated GFR > 60.0 ML/MIN Glucose 95 (74-106) mg/dL Calcium 8.7 (8.4-10.2) mg/dL Magnesium (1.6-2.3) mg/dL Total Bilirubin 1.20 (0.2-1.3) mg/dL AST 24 (14-36) U/L ALT 38 H (0-35) U/L Alkaline Phosphatase 136 H (38-126) U/L Troponin I < 0.012 (0.000-0.034) ng/mL Serum Total Protein 6.6 (6.3-8.2) g/dL Albumin 3.5 (3.5-5.0) g/dL Urine Color (YELLOW) Urine Appearance (CLEAR) Urine pH (5-6) Ur Specific [place] (1.005-1.025) Urine Protein (Negative) Urine Ketones (NEGATIVE) Urine Blood (0-5) Slick/ul Urine Nitrite (NEGATIVE) Urine Bilirubin (NEGATIVE) Urine Urobilinogen (0-1) mg/dL Ur Leukocyte Esterase (NEGATIVE) Urine WBC (Auto) (0-5) /HPF Urine RBC (Auto) (0-2) /HPF U Epithel Cells (Auto) (FEW) /HPF Urine Bacteria (Auto) (NEGATIVE) /HPF Urine Mucus (Auto) (NEGATIVE) /HPF Urine Culture Reflexed (NO) Urine Glucose (NEGATIVE) mg/dL - Radiology Impressions Radiology Exams & Impressions: Radiology Procedures Category Date Time Status ABDOMEN AND PELVIS W CONTRAST [CT] Stat Exams 11/11/20 17:40 Completed CHEST WITH CONTRAST [CT] Stat Exams 11/11/20 17:40 Completed
[2020-11-12] MEDS: solu-MEDROL 125 MG IV SCH ×3 (13:59→23:11)
[2020-11-12] MEDS: Zofran 4 MG/2 ML VIAL IV PRN ×2 (15:59→23:11)
[2020-11-12] MEDS: Ecotrin 325 MG PO SCH (21:19)
[2020-11-13 05:20] LABS: BASOPHIL % 0.1 % (0.0-0.4); Basophil (Absolute #) 0.01 (0-0.4); Eosinophil (Absolute #) 0 (0-0.5); Hematocrit 35.5 % (35-47); Hemoglobin 12.4 gm/dl (12.0-16.0); Lymphocyte (Absolute #) 0.51 (1.0-4.6); Mean Cell Volume 92.7 fl (78-100); Mean Corpuscular Hemoglobin 32.4 pg (26-32); Mean Corpuscular Hgb Concent. 34.9 g/dl (32-36); Mean Platelet Volume 10.5 fl (7.5-11.0); Monocyte (Absolute #) 0.01 (0.0-1.3); Monocytes % 0.1 % (0.0-12.0); Neutrophil % 93.8 % (36.0-66.0); Platelet Count 338 K/mm3 (150-450); Red Blood Count 3.83 M/mm3 (4.1-5.4); Red Cell Distribution Width 14.3 % (11.5-14.0); White Blood Count 8.4 K/mm3 (4.0-10.5)
[2020-11-13 05:28] LABS: ALBUMIN 3.7 g/dL (3.5-5.0); ALKALINE PHOSPHATASE 137 U/L (38-126); ANION GAP 9.1 MEQ/L (5-15); BLOOD UREA NITROGEN 10 mg/dL (7-17); CHLORIDE 106 mmol/L (98-107); Calcium 9.4 mg/dL (8.4-10.2); Carbon Dioxide 25 mmol/L (22-30); Creatinine 1 0.62 mg/dL (0.52-1.04); EST GLOMERULAR FILTRATION RATE > 60.0 ML/MIN; Glucose 141 mg/dL (74-106); Potassium 4.3 mmol/L (3.5-5.1); SGOT/AST 23 U/L (14-36); SGPT/ALT 49 U/L (0-35); SODIUM 136 mmol/L (137-145); Total Protein 6.8 g/dL (6.3-8.2)
[2020-11-13] MEDS: solu-MEDROL 125 MG IV SCH ×3 (06:32→21:17)
[2020-11-13] MEDS: Zosyn 3.375 GM Vial 3.375 GM in Sodium Chloride 100ML MINI-BAG PLUS 100 ML IV SCH ×3 (06:34→18:27)
[2020-11-13] MEDS: MORPHINE SULFATE 2 MG INJ IV PRN (07:59)
[2020-11-13 08:38] LABS: Slide Review 1 YES
[2020-11-13] MEDS: SYNTHROID 150 MCG PO SCH (09:10)
[2020-11-13] MEDS: Sodium Chloride 0.9% 1000 ML 1,000 ML IV SCH ×3 (10:31→21:17)
[2020-11-13] MEDS ORDERED: Naprosyn 500 MG PO ONE (11:54)
[2020-11-13] MEDS: NORCO 7.5/325 MG TAB PO PRN ×2 (16:30→20:50)
[2020-11-13] MEDS: Ecotrin 325 MG PO SCH (21:17)
[2020-11-14] MEDS: Zosyn 3.375 GM Vial 3.375 GM in Sodium Chloride 100ML MINI-BAG PLUS 100 ML IV SCH ×3 (01:02→09:28)
[2020-11-14 05:34] LABS: Hemoglobin 11.3 gm/dl (12.0-16.0); Mean Cell Volume 94.3 fl (78-100); Mean Corpuscular Hemoglobin 32.3 pg (26-32); Mean Corpuscular Hgb Concent. 34.2 g/dl (32-36); Mean Platelet Volume 10.4 fl (7.5-11.0); Platelet Count 328 K/mm3 (150-450); Red Cell Distribution Width 14.4 % (11.5-14.0); White Blood Count 15.5 K/mm3 (4.0-10.5)
[2020-11-14] MEDS: solu-MEDROL 125 MG IV SCH (05:35)
[2020-11-14 06:06] LABS: ALBUMIN 3.3 g/dL (3.5-5.0); ALKALINE PHOSPHATASE 107 U/L (38-126); ANION GAP 7.9 MEQ/L (5-15); BLOOD UREA NITROGEN 14 mg/dL (7-17); CHLORIDE 110 mmol/L (98-107); Calcium 9.8 mg/dL (8.4-10.2); Carbon Dioxide 27 mmol/L (22-30); Creatinine 1 0.64 mg/dL (0.52-1.04); EST GLOMERULAR FILTRATION RATE > 60.0 ML/MIN; Glucose 128 mg/dL (74-106); Potassium 4.4 mmol/L (3.5-5.1); SGOT/AST 14 U/L (14-36); SGPT/ALT 40 U/L (0-35); SODIUM 140 mmol/L (137-145); Total Protein 6.1 g/dL (6.3-8.2)
[2020-11-14] MEDS: NORCO 7.5/325 MG TAB PO PRN (10:11)
[2020-11-14] MEDS: SYNTHROID 150 MCG PO SCH (10:16)
[2020-11-14 11:38] VITALS: BP 133/60; PULSE 70; O2SAT 95
[2020-11-14] MEDS ORDERED: Zosyn 3.375 GM Vial 3.375 GM in Sodium Chloride 100ML MINI-BAG PLUS 100 ML IV SCH (12:00)
--- NOTE | 2020-11-14 13:11 | PCM.DCORD ---
- Discharge Disposition: Home, Self-Care Condition: Stable Prescriptions: New Prednisone 10 mg [Deltasone 10 mg] 10 mg PO DAILY #10 tablet Cefdinir [Omnicef] 300 mg PO BID 7 Days #14 capsule Metronidazole 500 mg [Flagyl 500 MG] 0 mg PO BID #14 tablet Bifidobacterium Infantis [Align] 4 mg PO DAILY #30 capsule Aspirin EC 325 mg [Ecotrin 325 MG] 325 mg PO DAILY #100 tablet.ec Saccharomyces Boulardii 250 mg PO BID #20 capsule Continue Levothyroxine Sodium 150 Mcg [Synthroid 150 Mcg] 150 mcg PO DAILY Additional Instructions: rx for norco 5/325 ,take 1 q 4h prn colon pain #28 tabs was electronically via [employer]. Dr Avalos 11/14/2020 Follow up with: TIO AVALOS DO [Primary Care Provider] - 11/24/20 10:00 am
== END 2020-11-14 14:25 | disposition home or self-care (01) ==
LOC: ED 15:51 → MED SURG 22:42
PROVIDERS: ADMIT Family Medicine; ATTEND Family Medicine
DX: K57.32 Diverticulitis of large intestine without perforation or abscess without bleeding (principal); Z79.899 Other long term (current) drug therapy
CPT/HCPCS: 36415; 71260; 74177; 80053; 81001; 83735; 84484; 85025; 85027; 85379; 85610; 85730; 93005; 93041; 93268; 94760; 94762; 96365; 96374; 99284; G0378; J2270; J2405; J2930; A9270-GY